=== PATIENT | male | born 1985 | race Caucasian/White ===

== ENCOUNTER 2018-12-03 09:16 | Emergency (ER) | payer OTHER ==
[2018-12-03] MEDS ORDERED: oxyCODONE/Acetamin 5/325 MG* TAB PO ONE (09:42)
[2018-12-03] MEDS ORDERED: Ketorolac INJ* 30 MG/ML 1 ML VIAL IM ONE (09:42)
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
[2018-12-03 10:38] VITALS: BP 139/81
== END 2018-12-03 10:37 | disposition home or self-care (01) ==
LOC: ED 09:16
DX: S43.004A Unspecified dislocation of right shoulder joint, initial encounter (principal); X50.0XXA Overexertion from strenuous movement or load, initial encounter; Y92.513 Shop (commercial) as the place of occurrence of the external cause; Y99.0 Civilian activity done for income or pay
CPT/HCPCS: 23650; 96372; 99282; J1885